=== PATIENT | male | born 1945 ===

== ENCOUNTER → 2020-01-27 10:49 | Outpatient (CLI) | payer OTHER, SELFPAY ==
[2020-01-27 23:27] LABS: COVID19 Sendout Not Detected (Not Detect)
== END ==
PROVIDERS: PCP Internal Medicine; Visit Provider Physician Assistant
DX: Z01.812 Encounter for preprocedural laboratory examination (principal)
CPT/HCPCS: 87635

== ENCOUNTER 2020-01-30 14:27 | Day surgery (SDC) | payer OTHER, SELFPAY ==
[2020-01-25 14:31] VITALS: BMI 26.6
[2020-01-30 15:27] VITALS: BMI 26.6
[2020-01-30 15:36] VITALS: BP 145/83; PULSE 88; RESP 20; TEMP 36.5; O2SAT 98
[2020-01-30] MEDS: ACETAMINOPHEN 325 MG TABLET 975 MG PO (15:46)
[2020-01-30] MEDS: GABAPENTIN 300 MG CAPSULE PO (15:48)
[2020-01-30] MEDS: LACTATED RINGERS 1,000 ML 42 ML IV (15:48)
--- NOTE | 2020-01-30 16:17 | PM.PREOP ---
Pre-operative Note COVID-19 COVID-19 status: Negative Result date/Date tested (Pos, Neg/Pending): 01/27/20 Interval Note History & Physical reviewed/Exam performed by Physician: Yes Changes to H&P: No
[2020-01-30] MEDS: CEFAZOLIN 2 GM/100 ML FROZ.PIGGY IV (16:30)
[2020-01-30] MEDS: BUPIVACAINE 0.5% (PF) VIAL 30 ML INJ (16:51)
--- NOTE | 2020-01-30 16:52 | SUR.OPER ---
Supine on padded OR bed, head on pillow, arms secured on padded arm boards at <90 degrees abduction, legs uncrossed, safety belt at thigh, tape over blanket over lower legs.
[2020-01-30 17:42] VITALS: BP 146/79; PULSE 81; RESP 13; TEMP 35.9; O2SAT 100
--- NOTE | 2020-01-30 17:43 | PM.OP.1 ---
Operative Date/Time/Diagnoses Date of procedure: 01/30/20 Time of procedure: 17:32 Pre-op diagnosis: Left inguinal hernia reducible Post-op diagnosis: same (Indirect hernia) Procedure & Clinicians Procedure: Repair with plug and patch technique Same procedure as scheduled: Yes Indications: Symptomatic left inguinal hernia Surgeon: Jason Collier Click Yes if Unassisted: Yes Anesthesia Type: General Operative Notes Findings: Small indirect hernia. Floor intact. Closure Type: primary Specimen(s): none sent Prosthetic devices, grafts, tissues, transplants, or devices: Small plug and patch Estimated Blood Loss (mL): 5 Blood products transfused: none Procedure in detail: The patient was placed supine on the operating room table and underwent general LMA anesthesia. He was prepped and draped in the usual fashion. A transverse incision was made overlying the left internal ring and carried down to the level of the external oblique. The external oblique was opened parallel with its fibers through the external ring. The cord structures were elevated. The cremaster was opened proximally and search made for an indirect sac. One was found and it was from surrounding structures. It was opened and found to have no contents. It was suture ligated with a 2 0 silk suture. Distal portion was removed and the stump was allowed to retract. The cremaster was closed over it.. The floor was examined and was found to be intact. A patch was placed across the floor and tacked at the pubic tubercle, the posterior lamella of the anterior rectus sheath, the ilioinguinal ligament, and superior lateral to the cord. The opening was modified as necessary to prevent tight constriction of the cord. Sutures of 0 Tycron were used to secure the mesh. The external oblique was closed with a running 3 0 Vicryl. The subcu was closed with interrupted 3 0 Vicryl. The skin was closed with a running 4 0 Vicryl subcuticular stitches and Steri-Strips. Dressing was applied the patient was awakened taken recovery room Complications: none Post-operative Condition: stable Disposition: PACU
[2020-01-30 17:47] VITALS: BP 156/84; PULSE 84; RESP 16; TEMP 36.1; O2SAT 97
[2020-01-30] MEDS: OXYCODONE IR 5 MG TABLET PO (17:51)
[2020-01-30 17:52] VITALS: BP 144/97; PULSE 84; RESP 15; TEMP 36.1; O2SAT 96
[2020-01-30 17:58] VITALS: BP 142/98; PULSE 81; RESP 14; TEMP 35.9; O2SAT 97
[2020-01-30 18:13] VITALS: BP 152/91; PULSE 81; RESP 14; TEMP 35.9; O2SAT 95
== END 2020-01-30 18:25 | disposition home or self-care (01) ==
PROVIDERS: PCP Internal Medicine; Referring Provider Specialist; Visit Provider Specialist
PROC: (CPT 49505; principal; 2020-01-30 15:45)
DX: K40.90 Unilateral inguinal hernia, without obstruction or gangrene, not specified as recurrent (principal); M06.9 Rheumatoid arthritis, unspecified; J45.909 Unspecified asthma, uncomplicated; I10 Essential (primary) hypertension; J43.9 Emphysema, unspecified
CPT/HCPCS: 49505; C1781; J0690; J1100; J1885; J2405; J2704; J3010